=== PATIENT | male | born 1980 | race Caucasian/White ===

== ENCOUNTER 2018-08-23 20:02 | Emergency (ER) | payer OTHER ==
[~2018-08-23] VITALS: Ht 182.9 cm; Wt 154.5 kg
[~2018-08-23 20:02] MED LIST: BACTRIM DS TABL1 TAB PO; BACTROBAN CREAM15 GM TOPICAL; CETIRIZINE HCL5 MG PO; GLUCOPHAGE500 MG PO; HUMALOG 30100 UNITS/; HUMULIN R100 U/ML SC; HYDROCODONE-APA1 TAB PO; LANTUS INSULIN10 ML SC; LEVAQUIN750 MG PO; MULTI-DAY VITAM1 TAB PO; PROTONIX40 MG PO; TOUJEO SOL300 UNIT/1 SC
[2018-08-23 20:31] VITALS: Ht 182.9 cm; Wt 154.5 kg
[2018-08-23] MEDS ORDERED: TOPROL XL25 MG (20:34)
[2018-08-23] MEDS ORDERED: CYCLOBENZAPRINE10 MG PO (20:34)
[2018-08-23] MEDS ORDERED: NORVASC10 MG PO (20:34)
[2018-08-23] MEDS ORDERED: LISINOPRIL40 MG PO (20:35)
[2018-08-23] MEDS ORDERED: CLEOCIN HCL300 MG PO (21:26)
[2018-08-23] MEDS ORDERED: KEFLEX500 MG PO (21:26)
[2018-08-23 21:44] VITALS: BP 117/62
== END 2018-08-23 21:45 | disposition home or self-care (01) ==
LOC: D.ER 20:02
DX: E11.621 Type 2 diabetes mellitus with foot ulcer (principal); I10 Essential (primary) hypertension

== ENCOUNTER → 2018-09-05 07:47 | Outpatient (CLI) | payer OTHER ==
[2018-08-23 20:31] VITALS: BMI 46.2
--- NOTE | ~2018-09-05 | EC ---
PATIENT:ALONOZ WHITING DATE OF SERVICE: 09/05/18 SEX: M MEDICAL RECORD: [id number] DATE OF : [birth year] LOCATION:[facility] AGE OF PATIENT: 38 ADMISSION DATE: 09/05/18 REFERRING PHYSICIAN: INTERPRETING PHYSICIAN: MAGUE HOFFMAN MD ECHOCARDIOGRAM REPORT ECHO CHARGES 4 ECHO COMPLETE Date: 09/05/18 CLINICAL DIAGNOSIS: ANGINA ECHOCARDIOGRAPHIC MEASUREMENTS (adult normal given) AC root (d.<3.7cm) 3.4 cm LV Septum d (<1.2 cm> 1.3 cm Valve Excursion 1.8 cm LV Septum (systole) 1.7 cm Left Atria (s.<4.0cm> 4.4 cm LVPW d(<1.2cm) 1.7 cm RV (d.<2.3cm) 3.7 cm LVPW (sytole) 1.9 cm LV diastole(<5.6CM) 5.7 cm MV E-F(>70mm/sec) cm LV systole 3.6 cm LVOT Diameter 2.4 cm MV exc.(>10mm) 1.3 cm Est.ejection fraction (50-75%) % DOPPLER: LVIT cm/sec A 88.0 cm/sec E 104 cm/sec LA cm/sec RVSP 19 mmHg LVOT 111 cm/sec AOP1/2T m/s Asc. Ao 136 cm/sec RVOT 120 cm/sec RA cm/sec PA 148 cm/sec AV Gradient Peak 7.41 mmHg AV Mean 4.23 mmHg AV Area 3.7 cm MV Gradient Peak 4.91 mmHg MV Mean 2.07 mmHg MV Area cm COMMENTS: Faculty Support Coordinator: 2 RE LEON Reliability Manager: 3 Dr. Castro TAPE# PACS Pericardial Effusion N DATE OF SERVICE: 09/05/2018 Adequate 2-D echo, color-flow and spectral Doppler, and M-mode. Borderline LVH. LV internal dimension is normal. Wall motion is normal. EF is greater than or equal to 55%. Aortic valve is tricuspid. No evidence of stenosis by Doppler interrogation. Left atrium is dilated at 4.4 cm. Mitral valve shows no prolapse. Trace MR. Right-sided chambers are grossly normal. Trace TR. ECHOCARDIOGRAM REPORT [id number] ALONZO WHITING TRANSINT:[id number] Voice Confirmation ID: [id number] DOCUMENT ID: [id number] MAGUE HOFFMAN MD CC: [id number] DICTATION DATE: 09/06/18 1309 GRILL PREP COOK: 09/06/18 1338 DEP CLI 09/05/18 [place] [id number] [place] [address]
[~2018-09-05 07:47] MED LIST changes: +CLEOCIN HCL300 MG PO; +CYCLOBENZAPRINE10 MG PO; +KEFLEX500 MG PO; +LISINOPRIL40 MG PO; +NORVASC10 MG PO; +TOPROL XL25 MG
== END | disposition home or self-care (01) ==
LOC: D.HCCARDIO 07:47
PROVIDERS: ATTEND Internal Medicine Interventional Cardiology
DX: I20.9 Angina pectoris, unspecified (principal); R06.02 Shortness of breath

== ENCOUNTER → 2018-09-07 07:54 | Outpatient (CLI) | payer OTHER ==
[2018-08-23 20:31] VITALS: BMI 46.2
--- NOTE | 2018-09-09 16:42 | ST ---
PATIENT:ALONZO WHITING MEDICAL RECORD: [id number] SEX: M LOCATION:[facility] ORDER #: ADMISSION DATE: 09/07/18 AGE OF PATIENT: 38 REFERRING PHYSICIAN: INTERPRETING PHYSICIAN: LAVELLE PRICE MD DATE OF SERVICE: 09/07/2018 Nuclear Stress Test INDICATIONS: Angina, abnormal ECG, shortness of breath, hypertension, diabetes. She was exercised on standard Lexiscan protocol with 26 mCi of sestamibi injected at peak stress, 9 mCi used previously for rest images. FINDINGS: Gated SPECT reveals preserved ejection fraction at 63% with decreased wall motioning, thickening, and brightening throughout the inferior segments. SPECT IMAGING: Cardiolite was used as myocardial perfusion agent. There is a fixed perfusion defect inferiorly compatible with previous inferior myocardial infarction; however, there is reversible ischemia laterally. This includes basal, mid, apical, and lateral segments. The degree of reversibility is moderate. The amount of myocardial involved between these 2 defects is larger. OVERALL IMPRESSION: This is an abnormal nuclear stress test, fixed perfusion defect inferiorly, reversible ischemia laterally suggestive of multivessel coronary artery disease. We will proceed with coronary angiography as a followup study. TRANSINT:[id number] Voice Confirmation ID: [id number] DOCUMENT ID: [id number] LAVELLE PRICE MD at 1642 CC: RAHUL HERNANDEZ MD [id number] DICTATION DATE: 09/07/18 1543 POURER: 09/08/18 0439 DEP CLI 09/07/18 [place] [id number]
== END | disposition home or self-care (01) ==
LOC: D.HCCARDIO 07:54
PROVIDERS: ATTEND Internal Medicine Interventional Cardiology
DX: I20.9 Angina pectoris, unspecified (principal)

== ENCOUNTER → 2018-09-19 22:23 | Outpatient (CLI) | payer OTHER ==
[2018-08-23 20:31] VITALS: BMI 46.2
[2018-09-25 18:06] LABS: AEROBE ID Final report (()); AEROBE ID Preliminary report (()); RESULT 1 Serratia marcescens (())
[2018-09-28 19:08] LABS: RESULT 1 Vagococcus fluvialis (())
== END | disposition home or self-care (01) ==
LOC: D.LABREF 22:23
PROVIDERS: ATTEND Podiatrist Foot & Ankle Surgery
DX: L03.115 Cellulitis of right lower limb (principal)

== ENCOUNTER 2018-09-29 10:57 | Outpatient (CLI) | payer OTHER | END 2018-09-29 16:10 | disposition home or self-care (01) | LOC: D.CATH 10:57 | DX: I20.9 Angina pectoris, unspecified (principal) ==